=== PATIENT | male | born 1990 | race Caucasian/White ===

== ENCOUNTER 2018-05-12 20:37 | Emergency (ER) | payer OTHER ==
[~2018-05-12] VITALS: Ht 167.6 cm; Wt 77.3 kg
[2018-05-12 20:37] VITALS: BP 118/63
[2018-05-12] MEDS ORDERED: LIDOCAINE 1% MDV 20ML VIAL IM ONE (23:15)
[2018-05-12] MEDS ORDERED: KEFL500C17 PO (23:29)
[2018-05-12] MEDS ORDERED: CEPHALEXIN 500 MG CAP PO ONE (23:30)
[2018-05-12] MEDS ORDERED: NORCO 5/325MG TABLET (BULK FOR ED) PO ONE (23:45)
== END 2018-05-12 23:51 | disposition home or self-care (01) ==
LOC: M ED 20:37
DX: L72.3 Sebaceous cyst (principal)

== ENCOUNTER 2020-08-13 22:21 | Emergency (ER) | payer OTHER ==
[~2020-08-13] VITALS: Ht 167.6 cm; Wt 77.0 kg
[~2020-08-13 22:21] MED LIST: KEFL500C17 PO
[2020-08-14] MEDS ORDERED: BACI500O8 TOP (01:03)
[2020-08-14] MEDS ORDERED: NEOSPORIN OINT 0.9 GM PKT TOP ONE (01:05)
[2020-08-14 02:01] VITALS: BP 139/85
== END 2020-08-14 02:00 | disposition home or self-care (01) ==
LOC: M ED 22:21
DX: Z51.89 Encounter for other specified aftercare (principal); L98.9 Disorder of the skin and subcutaneous tissue, unspecified